=== PATIENT | female | born 1970 | race Caucasian/White ===

== ENCOUNTER 2017-06-10 09:46 | Emergency (ER) | payer BC ==
[~2017-06-10] VITALS: Ht 167.6 cm; Wt 104.3 kg
[2017-06-10] MEDS ORDERED: PREDNISONE 10 M10 MG PO (09:59)
[2017-06-10] MEDS ORDERED: CLARITHROMYCIN500 MG PO (09:59)
[2017-06-10] MEDS ORDERED: PROZAC20 MG PO (10:01)
[2017-06-10] MEDS ORDERED: LOVAZA1000 MG PO (10:04)
[2017-06-10] MEDS ORDERED: SYMBICORT160 MCG/4. INH (10:04)
[2017-06-10] MEDS ORDERED: CRESTOR10 MG PO (10:04)
[2017-06-10] MEDS ORDERED: ZYRTEC 10 MG TA10 MG PO (10:05)
[2017-06-10] MEDS ORDERED: VENTOLIN HFA 1818 GM INH (10:05)
[2017-06-10] MEDS ORDERED: TYLENOL325 MG PO (10:05)
[2017-06-10] MEDS ORDERED: MIRENA1 EACH VAG (10:05)
[2017-06-10] MEDS ORDERED: SYNTHROID75 MCG PO (10:06)
[2017-06-10 10:32] LABS: ABSOLUTE BASOPHILS 0.1 thou/uL (0.0-0.2); ABSOLUTE EOSINOPHILS 0.1 thou/uL (0.0-0.7); ABSOLUTE LYMPHOCYTES 3.9 thou/uL (0.8-5.3); ABSOLUTE MONOCYTES 0.7 thou/uL (0.0-1.2); BASOPHILS 0.7 %; EOSINOPHILS 0.5 %; HEMATOCRIT 46.6 % (37.0-47.0); HEMOGLOBIN 15.6 gm/dL (12.0-15.0); MCH 32.5 pg (26.0-34.0); MCHC 33.5 g/dL (28.0-37.0); MCV 96.8 fL (80.0-100.0); MONOCYTES 6.6 %; MPV 9.6 fl. (7.2-11.1); NUCLEATED RBCS 0 /100WBC; PLATELET COUNT* 150 thou/uL (150-400); POLYS 56.2 %; RBC 4.81 mil/uL (4.20-5.00); RDW-CV 13.8 % (10.5-14.5); WBC 10.7 thou/uL (4.0-11.0)
[2017-06-10 10:34] LABS: CREATININE 0.9 mg/dL (0.6-1.3); POTASSIUM 3.6 mmol/L (3.5-5.1)
[2017-06-10 10:39] LABS: TOTAL BILIRUBIN 0.4 mg/dL (<0.1-1.0); TOTAL PROTEIN 7.5 g/dL (6.4-8.2)
[2017-06-10 10:43] LABS: BE 3.3 mmol/L (-2 to +3); HCO3 28.6 mmol/L (22.0-26.0); PCO2 45.4 mmHg (35.0-45.0); pH 7.417 (7.340-7.450)
[2017-06-10 12:34] LABS: PO2 48.1 mmHg (75.0-100.0)
[2017-06-10] MEDS ORDERED: OXYGEN MISCELL (13:00)
--- NOTE | 2017-06-10 13:03 | NUR ---
CM received call from ED, Pt needs home o2 set up, ordered obtained. Faxed info to [place] from [facility]. Waiting on ETA to updated Pt.
[2017-06-10] MEDS ORDERED: MUCUS-ER MAX1200 MG PO (16:07)
[2017-06-10] MEDS ORDERED: DUONEB 2.5-0.5 M3 ML INH (16:07)
[2017-06-10] MEDS ORDERED: PREDNISONE 10 M10 M1 PO (16:07)
[2017-06-10 16:18] VITALS: BP 139/89
== END 2017-06-10 16:20 | disposition home or self-care (01) ==
LOC: M.ERS 09:46
PROVIDERS: Personal Emergency Response Attendant
DX: J44.1 Chronic obstructive pulmonary disease with (acute) exacerbation (principal); R09.02 Hypoxemia; I10 Essential (primary) hypertension; E03.9 Hypothyroidism, unspecified; F17.210 Nicotine dependence, cigarettes, uncomplicated